=== PATIENT | male | born 1965 | race Caucasian/White ===

== ENCOUNTER → 2017-07-26 | Outpatient (CLI) | payer MEDICARE, OTHER ==
--- NOTE | 2017-07-26 10:00 | MR ---
EXAMINATION TYPE: MR shoulder LT wo con DATE OF EXAM: 07/26/2017 COMPARISON: NONE HISTORY: Injury of rotator cuff, left shoulder TECHNIQUE: Multiplanar, multisequence imaging of the left shoulder is performed without contrast. FINDINGS: Rotator Cuff: There is diffuse intermediate signal involving the distal centimeter of the supraspinat us tendon compatible tendinopathy. There is no through thickness tear. Intrasubstance signal suggest partial intrasubstance tear. Within the infraspinatus tendon the no diagnostic evidence of through thickness tear or retraction. I ntrasubstance signal noted compatible with tendinosis. Suspect a small partial tear measuring 4 mm at the insertion. There is increased signal at the insertion of the subscapularis tendon most typical tendinosis. Note retraction. Acromioclavicular Joint: There is arthropathy of the AC joint which does result in mass effect and im pingement of the supraspinatus tendon and muscle. Glenohumeral Joint: Trace amount of fluid is noted. Glenohumeral ligaments intact. Labrum: Abnormal morphology of the superior labrum compatible with SLAP tear. Biceps Tendon: The long head of biceps is in normal location within bicipital groove. However, the bi cipital tendon is poorly visualized within the intracapsular portion and within the rotator interval. Biceps anchor is poorly defined. Suspected biceps tendon tear. Bone marrow signal: No focal abnormal marrow signal is appreciated. IMPRESSION: 1. Partial tear insertion infraspinatus, supraspinatus and subscapularis tendons with no definite thr ough thickness tear or retraction. 2. SLAP tear 3. Bicipital tendon is poorly visualized within the rotator interval compatible with bicipital tendon tear. 4. Impingement secondary to arthropathy of the AC joint.
== END | disposition home or self-care (01) ==
LOC: RADMRIMAIN 08:40
PROVIDERS: ATTEND Family Medicine
DX: M75.112 Incomplete rotator cuff tear or rupture of left shoulder, not specified as traumatic (principal); S43.402A Unspecified sprain of left shoulder joint, initial encounter; M12.812 Other specific arthropathies, not elsewhere classified, left shoulder

== ENCOUNTER → 2020-10-28 | Outpatient (CLI) | payer MEDICARE, OTHER ==
--- NOTE | 2020-10-28 08:29 | MR ---
EXAMINATION TYPE: MR knee LT wo con DATE OF EXAM: 10/28/2020 COMPARISON: None. HISTORY: Internal derangement of left knee, pain x a few years TECHNIQUE: Multiplanar, multisequence imaging of the left knee is performed without IV contrast. FINDINGS: MEDIAL MENISCUS: Irregular linear signal posterior horn medial meniscus does not definitively extend to articular surface. LATERAL MENISCUS: Faint oblique and globular increased signal posterior horn lateral meniscus does no t definitively extend to articular surface. Extensive adjacent or meniscal cyst formation coronal kala ge 22 CRUCIATE LIGAMENTS: The anterior and posterior cruciate ligaments are intact and unremarkable. COLLATERAL LIGAMENTS: The medial collateral ligament and lateral collateral ligament complex are inta ct. Mass effect from para meniscal cyst formation on the lateral collateral ligament complex noted. M oderate ill-defined fluid surrounding the medial collateral ligament. EXTENSOR MECHANISM: Visualized quadriceps and patellar tendons are intact. EFFUSION: Moderate-sized suprapatellar joint effusion. POPLITEAL CYST: Large septated popliteal/hoskins cyst with leak or fluid extension inferiorly. This me asures approximately 7 cm long axis coronal image 34. TRICOMPARTMENT SPACES: Mild to moderate tricompartment joint space loss with mild tricompartmental sp urring. CARTILAGE: Tricompartment articular cartilage is fairly well maintained. BONE MARROW SIGNAL: Heterogeneous increased T2 signal in the medial distal femoral condyle with serpi ginous low T1 signal abutting the articular surface sagittal image 26 and coronal image 22. OTHER: No additional significant abnormality is appreciated. IMPRESSION: 1. Small subchondral insufficiency fracture distal medial femoral condyle with adjacent significant o sseous contusion and/or abnormal bone marrow edema medial distal femoral level. 2. At least Intrasubstance tear posterior horn of medial meniscus, full-thickness tear is suspected. 3. Full-thickness tear lateral meniscus posterior horn with adjacent para meniscal cyst formation. Ma ss effect on adjacent lateral collateral ligament complex. 4. Mild/moderate MCL sprain injury. 5. Large leaking septated popliteal cyst. 6. Moderate-sized suprapatellar joint effusion. 7. Mild to moderate tricompartment degenerative changes.
== END | disposition home or self-care (01) ==
LOC: RADMRIMAIN 07:22
PROVIDERS: ATTEND Family Medicine
DX: M84.452A Pathological fracture, left femur, initial encounter for fracture (principal); M23.352 Other meniscus derangements, posterior horn of lateral meniscus, left knee; S83.412A Sprain of medial collateral ligament of left knee, initial encounter; M17.12 Unilateral primary osteoarthritis, left knee; M71.22 Synovial cyst of popliteal space [Baker], left knee

== ENCOUNTER 2021-01-04 20:16 | Emergency (ER) | payer MEDICARE, OTHER ==
[2021-01-04 20:34] VITALS: BP 157/90; PULSE 104; RESP 16; TEMP 98.1
[2021-01-04] MEDS ORDERED: LIDOCAINE 1%-EPI 1:100,000 20 ML VIAL SQ STA (20:34)
[2021-01-04] MEDS ORDERED: DIPH,PERTUS(ACELL)TETVAC-LF 0.5 ML VIAL IM ONE (20:35)
--- NOTE | 2021-01-04 21:01 | ED ---
Wound/Laceration HPI - General Chief Complaint: Wound/Laceration Stated Complaint: L foot Laceration Time Seen by Provider: 01/04/21 20:33 Source: patient Mode of arrival: ambulatory Limitations: altered mental status - History of Present Illness Initial Comments: 55-year-old male presents to emergency room with a chief complaint of laceration. 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 Patient reports the wound is otherwise clean. States she attempted to clean himself. Tetanus is not up-to-date. Denies any paresthesias or weakness and ankle. States pain is sharp 6/10. Alleviated at rest. Exacerbated with touching the region. He reports some bleeding which is since resolved. Denies blood thinners. - Related Data Allergies Allergy/AdvReac Type Severity Reaction Status Date / Time Fish Containing Products Allergy Unknown Verified 01/04/21 20:28 [Fish] Review of Systems ROS Statement: Those systems with pertinent positive or pertinent negative responses have been documented in the HPI. ROS Other: All systems not noted in ROS Statement are negative. Past Medical History Past Medical History: No Reported History History of Any Multi-Drug Resistant Organisms: None Reported Past Surgical History: Hernia Repair, Orthopedic Surgery Past Psychological History: No Psychological Hx Reported Smoking Status: Current every day smoker Past Alcohol Use History: None Reported Past Drug Use History: Marijuana General Exam Limitations: no limitations General appearance: alert, in no apparent distress Head exam: Present: atraumatic, normocephalic, normal inspection Eye exam: Present: normal appearance, PERRL, EOMI Pupils: Present: normal accommodation ENT exam: Present: normal exam, normal oropharynx, mucous membranes moist Neck exam: Present: normal inspection, full ROM. Absent: tenderness, lymphadenopathy Respiratory exam: Present: normal lung sounds bilaterally. Absent: respiratory distress Cardiovascular Exam: Present: regular rate, normal rhythm, normal heart sounds. Absent: systolic murmur Extremities exam: Present: full ROM, tenderness (Tenderness at the lacerated site), normal capillary refill, other (Palpable DP and PT bilaterally. Sensation intact in the left lower extremity). Absent: normal inspection (57 with a laceration on the medial aspect of the foot), pedal edema, joint swelling, calf tenderness Back exam: Present: normal inspection, full ROM Neurological exam: Present: alert, oriented X3 Psychiatric exam: Present: normal affect, normal mood Skin exam: Present: warm, dry, intact, normal color Course Vital Signs 01/04/21 20:24 Temperature 98.1 F Pulse Rate 104 H Respiratory 16 Rate Blood Pressure 157/90 O2 Sat by Pulse 99 Oximetry Procedures - Laceration Laceration #1 Consent Obtained: verbal consent Indication: laceration Site: lower extremity Size (cm): 5 Description: linear, clean Depth: simple, single layer Sedation/Analgesia: none Anesthetic Used: lidocaine 1% Anesthesia Technique: local infiltration Amount (mls): 3 Pre-repair: irrigated extensively, deep structures intact Type of Sutures: nylon Size of Sutures: 4-0 Number of Sutures: 5 Technique: simple, interrupted Patient Tolerated Procedure: well, no complications Medical Decision Making - Medical Decision Making 55-year-old male presents emergency Department with a chief complaint of a laceration. On physical examination, he is neurovascularly intact. Superficial laceration medial aspect of the left ankle that was thoroughly or get it with saline and iodine. Laceration site was repaired with 5 sutures. Patient tolerated procedure well. Advised to return in 12 days for suture removal. Tetanus was updated. Return parameters were thoroughly discussed patient is understanding and agreeable. Case discussed with Disposition Clinical Impression: Laceration Disposition: HOME SELF-CARE Condition: Stable Instructions (If sedation given, give patient instructions): Care For Your Stitches (DC), Laceration (DC) Additional Instructions: Please return to the emergency room in 12 days to have sutures removed. Please watch for any signs of infection which may include increased pain, swelling, redness, fever or chills. Please return to emergency room for any signs of infection do occur. Please use clean soap and water over the area to prevent scabbing over your stitches. Please leave wound covered for the first 24-48 hours and then leave wound open to air. Please return to the emergency room for any other concerns. Is patient prescribed a controlled substance at d/c from ED?: No Referrals: Brian Payton MD [Primary Care Provider] - 1-2 days Time of Disposition: 21:01
== END 2021-01-04 21:00 | disposition home or self-care (01) ==
LOC: EC 20:16
DX: S91.312A Laceration without foreign body, left foot, initial encounter (principal); F17.200 Nicotine dependence, unspecified, uncomplicated; F12.90 Cannabis use, unspecified, uncomplicated; W26.8XXA Contact with other sharp object(s), not elsewhere classified, initial encounter; Z23 Encounter for immunization
CPT/HCPCS: 12002; 90471; 90715; 99282

== ENCOUNTER 2021-01-08 13:45 | Emergency (ER) | payer MEDICARE, OTHER ==
[2021-01-08 13:51] VITALS: BP 137/97; PULSE 88; RESP 16; TEMP 97.9
--- NOTE | 2021-01-08 14:21 | ED ---
General Adult HPI - General Chief complaint: Wound/Laceration Stated complaint: Lft leg swelling Time Seen by Provider: 01/08/21 14:08 Source: patient, RN notes reviewed Mode of arrival: wheelchair Limitations: no limitations - History of Present Illness Initial comments: 55-year-old white male, alert and oriented 4, presents to the emergency room with complaints of increased pain and swelling to his left ankle. Patient was here on January 04 and had sutures placed after sustaining a laceration, we'll grinder tender. Patient had tetanus updated at that visit. Patient does state that there has been some drainage but not very much. He has been unable to wear a shoe related to the pain since the incident. Patient is a pack and a half day smoker but denies any other medical history. He denies any fevers, nausea, vomiting, or diarrhea. -: days(s) (4) Location: lower extremity (Ankle) Radiation: non-radiation Severity scale (1-10): 10 Consistency: constant Improves with: immobilization Worsens with: other (Weightbearing or palpation) Associated Symptoms: denies other symptoms Treatments Prior to Arrival: none - Related Data Previous Rx's Medication Instructions Recorded Cephalexin [Keflex] 500 mg PO Q6HR 7 Days #28 cap 01/08/21 Sulfamethox-Tmp 800-160Mg [Bactrim 1 each PO Q12HR 7 Days #14 tab 01/08/21 Ds] Allergies Allergy/AdvReac Type Severity Reaction Status Date / Time Fish Containing Products Allergy Unknown Verified 01/08/21 13:51 [Fish] Review of Systems ROS Statement: Those systems with pertinent positive or pertinent negative responses have been documented in the HPI. ROS Other: All systems not noted in ROS Statement are negative. Past Medical History Past Medical History: No Reported History History of Any Multi-Drug Resistant Organisms: None Reported Past Surgical History: Hernia Repair, Orthopedic Surgery Past Psychological History: No Psychological Hx Reported Smoking Status: Current every day smoker Past Alcohol Use History: None Reported Past Drug Use History: Marijuana General Exam Limitations: no limitations General appearance: alert, in no apparent distress Head exam: Present: atraumatic, normocephalic, normal inspection Eye exam: Present: normal appearance, PERRL, EOMI. Absent: scleral icterus, conjunctival injection, periorbital swelling Pupils: Present: normal accommodation ENT exam: Present: normal exam, normal oropharynx, mucous membranes moist Neck exam: Present: normal inspection, full ROM. Absent: tenderness, meningismus, lymphadenopathy, thyromegaly Respiratory exam: Present: normal lung sounds bilaterally. Absent: respiratory distress, wheezes, rales, rhonchi, stridor Cardiovascular Exam: Present: regular rate, normal rhythm, normal heart sounds. Absent: systolic murmur, diastolic murmur, rubs, gallop, clicks GI/Abdominal exam: Present: soft, normal bowel sounds. Absent: distended, tenderness, guarding, rebound, rigid Left Ankle exam: Present: tenderness, swelling, laceration, erythema (Oximetry is intact) Foot/Toe exam: Present: tenderness, swelling, laceration (5 sutures intact), erythema Neurovascular tendon exam: Present: no vascular compromise. Absent: pulse deficit, abnormal cap refill, motor deficit, sensory deficit, tendon deficit, extremity cold to touch, pallor, foot drop Back exam: Present: full ROM. Absent: tenderness, CVA tenderness (R), CVA tenderness (L), muscle spasm, paraspinal tenderness, vertebral tenderness Neurological exam: Present: alert, oriented X3, CN II-XII intact Psychiatric exam: Present: normal affect, normal mood Skin exam: Present: warm, dry, intact, normal color, erythema (Left ankle with 5 sutures intact). Absent: rash Course Vital Signs 01/08/21 13:49 Temperature 97.9 F Pulse Rate 88 Respiratory 16 Rate Blood Pressure 137/97 O2 Sat by Pulse 98 Oximetry Medical Decision Making - Medical Decision Making Patient states that there has been mild drainage at home from the site. He denies any fevers. He does have an appointment with Dr. Payton on Wednesday. Tetanus shot was updated at his visit on January 04. X-ray of the ankle shows no fracture or dislocation, soft tissue swelling noted. Patient will be placed on antibiotics, Keflex and Bactrim and directed to follow up with his doctor on Wednesday as scheduled. Dr. Bates at bedside to assess patient. He is agreeable to this plan of care. Disposition Clinical Impression: Wound infection Disposition: HOME SELF-CARE Condition: Fair Instructions (If sedation given, give patient instructions): Wound Infection (ED) Additional Instructions: Take antibiotics as prescribed and keep your appointment with your primary care doctor this Wednesday. Return if worsening symptoms including pain or fever. Prescriptions: Sulfamethox-Tmp 800-160Mg [Bactrim Ds] 1 each PO Q12HR 7 Days #14 tab Cephalexin [Keflex] 500 mg PO Q6HR 7 Days #28 cap Is patient prescribed a controlled substance at d/c from ED?: No Referrals: Brian Payton MD [Primary Care Provider] - 1-2 days Time of Disposition: 15:49
[2021-01-08] MEDS ORDERED: CEPHALEXIN 500 MG CAP PO STA (14:22)
[2021-01-08] MEDS ORDERED: SULFAMETHOX-TMP 800-160MG 1 EACH TAB PO STA (14:22)
[2021-01-08] MEDS ORDERED: HYDROcodone/APAP 5-325MG 1 EACH TAB PO STA (14:23)
--- NOTE | 2021-01-08 15:42 | XR ---
EXAMINATION TYPE: XR ankle complete LT DATE OF EXAM: 01/08/2021 CLINICAL HISTORY: Pain, infection swelling TECHNIQUE: Frontal, lateral and oblique images of the left ankle are obtained. COMPARISON: None. FINDINGS: There is no acute fracture/dislocation evident in the left ankle. The ankle mortise appea rs within normal limits. Plantar calcaneal spur. Overlying soft tissue edema. IMPRESSION: There is no acute fracture or dislocation in the left ankle. Prominence of the overlying soft tissues suggestive of edema.
== END 2021-01-08 16:01 | disposition home or self-care (01) ==
LOC: EC 13:45
DX: T81.49XA Infection following a procedure, other surgical site, initial encounter (principal); F17.200 Nicotine dependence, unspecified, uncomplicated; F12.90 Cannabis use, unspecified, uncomplicated
CPT/HCPCS: 99283

== ENCOUNTER → 2021-06-18 | Outpatient (CLI) | payer MEDICARE, OTHER ==
--- NOTE | 2021-06-18 10:07 | US ---
EXAMINATION TYPE: US carotid duplex BILAT DATE OF EXAM: 06/18/2021 COMPARISON: NONE CLINICAL HISTORY: I73.9 PERIPHERAL VASCULAR DISEASE. EXAM MEASUREMENTS: RIGHT: Peak Systolic Velocity (PSV) cm/sec ----- Right CCA: 85.3 ----- Right ICA: 71.9 ----- Right ECA: 48.7 ICA/CCA ratio: 0.8 RIGHT: End Diastole cm/sec ----- Right CCA: 23.7 ----- Right ICA: 31.6 ----- Right ECA: 14.7 LEFT: Peak Systolic Velocity (PSV) cm/sec ----- Left CCA: 81.6 ----- Left ICA: 62.6 ----- Left ECA: 63.3 ICA/CCA ratio: 0.8 LEFT: End Diastole cm/sec ----- Left CCA: 23.9 ----- Left ICA: 27.9 ----- Left ECA: 15.4 VERTEBRALS (direction of flow): Right Vertebral: Antegrade Left Vertebral: Antegrade Rhythm: Normal Minimal plaque, no elevated velocities. IMPRESSION: Mild atheromatous plaquing and wall thickening without significant flow-limiting stenosi s. Criteria for Assigning % of Stenosis / Diameter reduction (Estimation based on the indirect measurements of the internal carotid artery velocities (ICA PSV). 1. Normal (no stenosis)=ICA PSV < 125 cm/s: ratio < 2.0: ICA EDV<40 cm/s. 2. Less than 50% stenosis=ICA PSV < 125 cm/s: ratio < 2.0: ICA EDV<40 cm/s. 3. 50 to 69% stenosis=ICA PSV of 125 to 230 cm/s: ration 2.0 ? 4.0: ICA EDV 40-100 cm/s. 4. Greater than 70% stenosis to near occlusion= ICA PSV > 230 cm/s: ratio > 4.0: ICA EDV > 100 cm/s. 5. Near occlusion= ICA PSV velocities may be low or undetectable: variable ratio and ICA EDV. 6. Total occlusion=unable to detect flow.
== END | disposition home or self-care (01) ==
LOC: RADUSWWP 08:18
PROVIDERS: ATTEND Family Medicine
DX: I67.2 Cerebral atherosclerosis (principal)
CPT/HCPCS: 93880; 93922; 93923

== ENCOUNTER → 2022-06-15 | Outpatient (CLI) | payer MEDICARE, OTHER ==
--- NOTE | 2022-06-15 08:58 | XR ---
EXAMINATION TYPE: XR knee 4V LT DATE OF EXAM: 06/15/2022 COMPARISON: NONE HISTORY: Pain TECHNIQUE: Three views are submitted. FINDINGS: There is abnormal appearance of the lateral femoral condyle. Moderate-sized suprapatellar bursa seen is mild narrowing tricompartmental joint space. Tiny hypertrophic spurs noted. IMPRESSION: 1. Findings are suggestive of osteochondritis lateral intra-articular femur. 2. Osteoarthritis with moderate suprapatellar bursal fluid collection
--- NOTE | 2022-06-15 09:21 | CTL ---
EXAMINATION TYPE: CT Low Dose Lung DATE OF EXAM: 06/15/2022 8:21 AM CLINICAL INDICATION:Male, 57 years old with history of Z87.891 Personal hx tobacco use/nicotine depen dence; history of tobacco use. COMPARISON: None. TECHNIQUE: Multiple axial non-contrast scans were obtained from approximately the lung apices through the upper abdomen. Coronal and sagittal reformatted images were obtained. Low dose technique was uti lized. CT DLP: 82 mGycm, Automated exposure control for dose reduction was used. CT Contrast: Contrast used: None Oral contrast used: None FINDINGS: ======== Lack of intravenous contrast and low dose technique limits the evaluation of the vascular and soft ti ssue structures. LUNGS: No evidence of pulmonary fibrosis. Scattered tree-in-bud opacities most pronounced in the ante rior right upper lobe No evidence of focal consolidation, pneumothorax or pleural effusion. Parasepta l and centrilobular emphysema changes. Nodules: RUL: None. RML: None. RLL: None. FABY: None. LLL: None. AIRWAY: Patent and unremarkable. HEART: Size within normal limits. MEDIASTINUM: No gross evidence of adenopathy. VASCULATURE: No aortic aneurysm. Anatomic variant right-sided aortic arch. MUSCULOSKELETAL: No acute osseous abnormalities SOFT TISSUES/LYMPH NODES: Unremarkable. LOWER NECK: No significant findings. UPPER ABDOMEN: No significant findings. IMPRESSION: 1. No clinically significant pulmonary nodules. 2. Scattered subtle tree-in-bud opacities correlate for infection/inflammatory process. Attention on follow-up. 3. Mild emphysema changes. CT LUNG RAD AND CT CHEST RECOMMENDATION: Lung-Rad 1 Negative: Continue annual screening with LDCT in 12 months. S Modifier (other clinically significant findings): None Recommend smoking cessation (if current smoker), or continuation of smoking cessation (if prior smoke r). Annual screening for lung cancer with low-dose computed tomography is recommended in adults ages 55 to 77 years who have a 30 pack-year smoking history and currently smoke or have quit within the pa st 15 years. Screening should be discontinued once a person has not smoked for 15 years or develops a health problem that substantially limits life expectancy or the ability or willingness to have curat jennifer lung surgery.
[2022-06-15 15:20] LABS: Basophils # (A) 0.06 X 10*3/uL (0.00-0.10); Basophils % (A) 0.9 %; Eosinophils # (A) 0.25 X 10*3/uL (0.04-0.35); Eosinophils % (A) 3.7 %; HCT 44.9 % (39.6-50.0); HGB 14.4 g/dL (13.0-17.0); Immature Grans, Automated 0.1 %; Lymphocytes # (A) 1.28 X 10*3/uL (0.90-5.00); MCH 29.4 pg (27.0-32.0); MCHC 32.1 g/dL (32.0-37.0); MCV 91.8 fL (80.0-97.0); Mean Platelet Volume 9.5 fL (9.5-12.2); Monocytes # (A) 0.66 X 10*3/uL (0.20-1.00); Monocytes % (A) 9.8 %; NRBC Per 100 WBC 0 /100 WBCS (0.0-0.0); Neutrophils # (A) 4.46 X 10*3/uL (1.80-7.70); Neutrophils % (A) 66.5 %; Platelet Count 253 X 10*3/uL (140-440); RBC 4.89 X 10*6/uL (4.40-5.60); RDW 13.9 % (11.5-14.5); WBC 6.72 X 10*3/uL (4.50-10.00)
[2022-06-15 15:32] LABS: ALT 37 U/L (10-49); AST 29 U/L (14-35); African American GFR (CKD) 114.9 (60.0-200.0); Albumin 4.1 g/dL (3.8-4.9); Albumin/Globulin Ratio 1.37 (1.60-3.17); Alkaline Phosphatase 102 U/L (41-126); Calcium 9.5 mg/dL (8.7-10.3); Chloride 104 mmol/L (96-109); Glucose 102 mg/dL (70-110); Non-African American GFR(CKD) 99.2 (60.0-200.0); Potassium 4.4 mmol/L (3.5-5.5); Sodium 138 mmol/L (135-145); Total Protein 7.1 g/dL (6.2-8.2); Uric Acid 4.3 mg/dL (3.7-8.7)
[2022-06-17 01:12] LABS: Chol/HDL Ratio 2.85 Ratio; LDL Cholesterol,Calculated 72.8 mg/dL (0.0-131.0)
== END | disposition home or self-care (01) ==
LOC: RADCTMAIN 07:52
PROVIDERS: ATTEND Internal Medicine
DX: Z12.2 Encounter for screening for malignant neoplasm of respiratory organs (principal); J43.9 Emphysema, unspecified; M17.12 Unilateral primary osteoarthritis, left knee; M25.462 Effusion, left knee; Z87.891 Personal history of nicotine dependence
CPT/HCPCS: 86803; 80053; 84443; 84550; 85025; 73564; 71271; G0103; 80061

== ENCOUNTER → 2023-03-30 | Outpatient (CLI) | payer MEDICARE, OTHER ==
--- NOTE | 2023-03-30 15:17 | CA ---
Transthoracic Echo Report Name: Zelalem Ashraf Age: 58 Gender: M : 1965 Exam Date: 03/30/2023 13:01 Exam Location: [facility] Ht (in): 73 Wt (lb): 200 Ordering Physician: Mike Pate MD Attending/Referring Phys: Mike Pate MD Building Cleaner Rekha Flores, [facility] Procedure CPT: Indications: I10 HTN Cardiac Hx: Technical Quality: Fair Contrast 1: Total Dose (mL): Contrast 2: Total Dose (mL): MEASUREMENTS (Male / Female) Normal Values 2D ECHO LV Diastolic Diameter PLAX 3.9 cm 4.2 - 5.9 / 3.9 - 5.3 cm LV Systolic Diameter PLAX 2.9 cm IVS Diastolic Thickness 1.3 cm 0.6 - 1.0 / 0.6 - 0.9 cm LVPW Diastolic Thickness 1.2 cm 0.6 - 1.0 / 0.6 - 0.9 cm LV Relative Wall Thickness 0.6 RV Internal Dim ED PLAX 4.5 cm LA Volume 59.8 cm??? 18 - 58 / 22 - 52 cm??? DOPPLER AV Peak Velocity 154.7 cm/s AV Peak Gradient 9.6 mmHg AV Mean Velocity 98.4 cm/s AV Mean Gradient 4.5 mmHg AV Velocity Time Integral 24.7 cm LVOT Peak Velocity 109.5 cm/s LVOT Peak Gradient 4.8 mmHg LVOT Velocity Time Integral 20.8 cm MV Area PHT 3.5 cm??? Mitral E Point Velocity 54.2 cm/s Mitral A Point Velocity 64.8 cm/s Mitral E to A Ratio 0.8 MV Deceleration Time 217.6 ms MV E' Velocity 5.6 cm/s Mitral E to MV E' Ratio 9.7 TR Peak Velocity 217.8 cm/s TR Peak Gradient 19.0 mmHg Right Ventricular Systolic Press 24.0 mmHg FINDINGS Left Ventricle Mildly increased left ventricular wall thickness. Left ventricular cavity size normal. Normal left ventricular systolic function with no obvious regional wall motion abnormalities. Left ventricular ejection fraction is estimated at 55-60 %. Right Ventricle Right ventricular dilatation. Right ventricular systolic pressure within normal limits. Right Atrium Normal right atrial size. Left Atrium Mildly increased left atrial volume. Mitral Valve Structurally normal mitral valve. No mitral stenosis. Trace to mild mitral regurgitation. Aortic Valve Trileaflet aortic valve. No aortic valve stenosis or regurgitation. Tricuspid Valve Structurally normal tricuspid valve. Mild tricuspid regurgitation. Pulmonic Valve Trace pulmonic regurgitation. Pericardium No pericardial effusion. Aorta Normal size aortic root and proximal ascending aorta. CONCLUSIONS Left ventricular ejection fraction 55-60% Mildly increased left ventricular wall thickness Trace to mild mitral regurgitation Mild tricuspid regurgitation Previewed by: Dr. Lalo Tavares DO (Electronically Signed) Final Date: 30 March 2023 15:16
== END | disposition home or self-care (01) ==
LOC: RADECHMAIN 12:49
PROVIDERS: ATTEND Internal Medicine
DX: I08.1 Rheumatic disorders of both mitral and tricuspid valves (principal); I10 Essential (primary) hypertension
CPT/HCPCS: 93306

== ENCOUNTER → 2023-06-22 | Outpatient (CLI) | payer MEDICARE, OTHER ==
--- NOTE | 2023-06-22 12:43 | CTL ---
EXAMINATION TYPE: CT Low Dose Lung DATE OF EXAM ORDERED: 06/22/2023 HISTORY: . Lung cancer screening CT DLP: [address] CTDI: 2.07 mGy Automated exposure control for dose reduction was used. SCREENING VISIT: COMPARISON: 06/15/2022 TECHNIQUE: Low dose computed tomography scan was performed through the chest at 1 mm thick sections a nd reconstructed images in multiple planes at 1 mm and [address] DIAGNOSTIC QUALITY: Satisfactory FINDINGS: ======== Lack of intravenous contrast and low dose technique limits the evaluation of the v ascular and soft tissue structures. LUNGS: No evidence of pulmonary fibrosis. No evidence of focal consolidation, pneumothorax or pleural effusion. Paraseptal and centrilobular emphysema changes. Nodules: RUL: Subpleural punctate 1 mm micronodule image 25 series 8. RML: None. RLL: None. FABY: 2 mm subpleural nodule image 26 series 8 2 mm nodule image 32 series 8. 2 mm nodule in the lobe image 32 series 8 LLL: None. AIRWAY: Patent and unremarkable. HEART: Size within normal limits. MEDIASTINUM: No gross evidence of adenopathy. 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 Mild osteopenia with s ome mild hypertrophic and degenerative changes spine SOFT TISSUES/LYMPH NODES: Unremarkable. LOWER NECK: No significant findings. UPPER ABDOMEN: Small hiatal hernia. IMPRESSION: Benign-appearing bilateral pulmonary micronodules 1. No suspicious pulmonary nodules or masses. 2. right-sided aortic arch. 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 LUNG RAD AND CT CHEST RECOMMENDATION: Lung-Rad 2 Benign Appearance or Behavior: Continue annual sc reening with LDCT in 12 months. S Modifier (other clinically significant findings): None
== END | disposition home or self-care (01) ==
LOC: RADCTMAIN 10:52
PROVIDERS: ATTEND Internal Medicine
DX: Z12.2 Encounter for screening for malignant neoplasm of respiratory organs (principal); J44.9 Chronic obstructive pulmonary disease, unspecified; I71.22 Aneurysm of the aortic arch, without rupture; R91.8 Other nonspecific abnormal finding of lung field; F17.210 Nicotine dependence, cigarettes, uncomplicated
CPT/HCPCS: 71271

== ENCOUNTER → 2024-09-06 | Outpatient (CLI) | payer MEDICARE, OTHER ==
--- NOTE | 2024-09-07 09:16 | CTL ---
EXAMINATION TYPE: CT Low Dose Lung DATE OF EXAM ORDERED: 09/06/2024 COMPARISON: Prior study June 22, 2023 and 2021 CLINICAL INDICATION: Male, 59 years old with history of Z12.2 ENCNTR SCREEN FOR MALIGNANT NEOPLASM OF RESP; PHH, smoker, Lung cancer screening, History of Smoking/tobacco use. TECHNIQUE: Low dose computed tomography scan was performed through the chest at 1 mm thick sections a nd reconstructed images in multiple planes at 1 mm and [address] DLP: 128.[address] CTDI: 3.3 mGy Automated exposure control for dose reduction was used. CT DIAGNOSTIC QUALITY: Satisfactory FINDINGS: Nodules: A few scattered tiny micronodules remain present. No new or enlarging greater than 6 mm pulm onary nodules. LUNGS: COPD: Severity: Mild to moderate greatest in the lung apices Fibrosis: Severity: None Lymph nodes: None Other findings: None RIGHT PLEURAL SPACE: Effusion: None Calcification: None Thickening: None Pneumothorax: None LEFT PLEURAL SPACE: Effusion: None Calcification: None Thickening: None Pneumothorax: None HEART: Heart Size: Normal Coronary Calcification: None Pericardial Effusion: None Persistent right-sided arch which is normal variant and thoracic aortic aneurysm measuring up to 4.5 cm in the proximal descending portion axial image 19. OTHER FINDINGS: Upper abdomen: None Bony thorax: Scoliosis in the upper to mid thoracic spine is redemonstrated Supraclavicular region: None Other: None IMPRESSION: Stable scattered micronodules. No new or enlarging greater than [address] LUNG RAD AND CT CHEST RECOMMENDATION: Lung-Rad 2 Benign Appearance or Behavior: Continue annual sc reening with LDCT in 12 months. S Modifier (other clinically significant findings): S Right-sided arch with thoracic aortic aneurysm up to 4.5 cm redemonstrated. [facility], , 09/07/2024 9:14 AM
== END | disposition home or self-care (01) ==
LOC: RADCTMAIN 07:25 → EEVIPCON 07:45
PROVIDERS: ATTEND Internal Medicine
DX: Z12.2 Encounter for screening for malignant neoplasm of respiratory organs (principal); J44.9 Chronic obstructive pulmonary disease, unspecified; F17.200 Nicotine dependence, unspecified, uncomplicated; I71.20 Thoracic aortic aneurysm, without rupture, unspecified
CPT/HCPCS: 71271